=== PATIENT | female | born 1990 ===

== ENCOUNTER 2022-07-30 05:59 | Day surgery (SDC) | payer OTHER ==
[~2022-07-30] VITALS: Ht 151.1 cm; Wt 54.0 kg
[2022-07-30] MEDS ORDERED: PERCOCET 5-3251 EACH PO (08:23)
[2022-07-30] MEDS ORDERED: NEURONTIN300 MG PO (08:23)
[2022-07-30] MEDS ORDERED: COLACE100 MG PO (08:23)
== END 2022-07-30 13:30 | disposition home or self-care (01) ==
LOC: CIR.AMB 05:59
PROVIDERS: ATTEND Surgery
DX: K62.5 Hemorrhage of anus and rectum (principal); K64.1 Second degree hemorrhoids; K62.89 Other specified diseases of anus and rectum; Z20.822 Contact with and (suspected) exposure to COVID-19